=== PATIENT | female | born 1950 | race Hispanic/Latino ===

== ENCOUNTER 2017-02-22 09:42 | Day surgery (SDC) | payer OTHER ==
[2017-02-18 09:40] VITALS: BMI 26.1
[2017-02-22] MEDS ORDERED: Propofol 10 mg/ml Inj (20 ML) ONE ×2 (12:36→13:05)
[2017-02-22 13:40] VITALS: O2SAT 96
[2017-02-22] MEDS ORDERED: Sodium Chloride 0.9% 1,000 ML IV SCH (13:45)
[2017-02-22 14:51] VITALS: BP 109/71; PULSE 68; RESP 18; TEMP 97.5
== END 2017-02-22 14:54 | disposition home or self-care (01) ==
LOC: ENDO 09:42
PROVIDERS: ATTEND Internal Medicine
DX: D12.5 Benign neoplasm of sigmoid colon (principal); D12.0 Benign neoplasm of cecum; K57.30 Diverticulosis of large intestine without perforation or abscess without bleeding; K55.20 Angiodysplasia of colon without hemorrhage; K59.00 Constipation, unspecified; E03.9 Hypothyroidism, unspecified; K64.8 Other hemorrhoids
CPT/HCPCS: 45380; 88305; J2001; J2704; J7040 ×2

== ENCOUNTER 2018-07-06 06:02 | Day surgery (SDC) | payer MEDICARE ==
[2018-06-07 14:09] VITALS: BMI 26.6
--- NOTE | 2018-07-05 21:15 | HP ---
DATE OF EXAM: 07/05/2018 SEX OF THE PATIENT: Female. AGE OF THE PATIENT: 67. TYPE OF DICTATION: History and Physical. REASON FOR ADMISSION: Right heart catheterization for evaluation of pulmonary hypertension. BRIEF CLINICAL HISTORY: A 67-year-old female with past medical history significant for Raynaud phenomenon, scleroderma, COPD, hypothyroidism, active smoker, referred for right heart catheterization by Dr. Bustillo to assess the severity of the pulmonary hypertension. Because patient had recent echo, which showed the right ventricular systolic pressure of 47 a year ago, patient had an echo that showed the RV systolic pressure was 40. So, patient is referred for right heart catheterization. PAST MEDICAL HISTORY: Past history is significant for scleroderma, COPD, pulmonary hypertension, RV systolic pressure of 47, hypothyroidism, Raynaud phenomenon. SOCIAL HISTORY: Active smoking, [id number] smoking, now cut down to half of a pack of cigarettes. No history of tobacco abuse, alcohol abuse. FAMILY HISTORY: Nothing significant. RECENT CARDIAC WORKUP FOLLOWS: Echo shows normal chamber size, normal systolic function, mild aortic stenosis, mild mitral valve regurgitation, mild tricuspid regurgitation, RV systolic pressure of 47. At stress test, [employer], treadmill time, patient walked on treadmill 6 minutes and 32 seconds. Nuclear scan is essentially negative. Ejection fraction 63%. VQ scan dated 05/09/2018 shows low probability. CURRENT MEDICATIONS: Patient is taking levothyroxine 75 daily; Trelegy Ellipta inhaler, combination of steroid, vilanterol, and umeclidinium, that is Trelegy Ellipta 100/62.5/25 one puff b.i.d.; Norvasc 2.5 mg started for Raynaud phenomenon. REVIEW OF SYSTEMS: As per HPI. PHYSICAL EXAMINATION: As follows: VITAL SIGNS: Height of the patient is 5 feet 9 inches, weight of the patient 180 pounds, body mass index 26.6 kg/m2. Rest of the vitals: Blood pressure 120/70, heart rate 60. HEENT: PERRLA intact. NECK: Supple. No carotid bruit or thyromegaly. CHEST: Clear to auscultation. HEART: S1 and S2 regular. ABDOMEN: Soft. EXTREMITIES: Clubbing, cyanosis negative. LABORATORY DATA: Blood workup, pending. IMPRESSION: A 67-year-old female, active tobacco abuse, with past medical history of Raynaud phenomenon, scleroderma, chronic obstructive pulmonary disease, hypothyroidism, pulmonary hypertension, admitted for right heart catheterization for evaluation for pulmonary hypertension and management for new medication. RECOMMENDATION: Continue Norvasc 2.5 mg for Raynaud phenomenon. Further recommendation after cardiac catheterization. We will follow with you. Thank you, Dr. Bustillo/Dr. Mascorro, for providing us the opportunity in taking care of Rocio Walt. Maricruz Schmidt MD
[2018-07-06 06:54] LABS: BASO # 0.1 K/mm3 (0.0-2.0); BASO % 1.7 % (0.0-3.0); EOS # 0.1 (0.0-0.7); EOS % 1.7 % (1.5-5.0); GRAN # 3.88 (1.4-6.5); GRAN % 65.8 % (50.0-68.0); HEMOGLOBIN 14.8 g/dL (12.0-16.0); LYMPH # 1.5 (1.2-3.4); LYMPH % 25.4 % (22.0-35.0); MEAN CELL VOLUME 94.5 fl (80.0-105.0); MEAN CORPUSCULAR HEMOGLOBIN 31.3 pg (25.0-35.0); MEAN CORPUSCULAR HGB CONC 33.1 g/dl (31.0-37.0); MEAN PLATELET VOLUME 10.1 fl (7.0-11.0); MONO # 0.3 (0.1-0.6); MONO % 5.4 % (1.0-6.0); RBC 4.73 10^6/uL (3.5-6.1); RED CELL DISTRIBUTION WIDTH 13.7 % (11.5-14.5); WHITE BLOOD COUNT 5.9 10^3/uL (4.5-11.0)
[2018-07-06 06:56] LABS: INR 0.95; PARTIAL THROMBOPLASTIN TIME 32.8 Seconds (25.1-36.5); PROTHROMBIN TIME 10.9 SECONDS (9.4-12.5)
[2018-07-06] MEDS ORDERED: Lidocaine 2% Inj (20ml) ONE (06:58)
[2018-07-06 06:59] LABS: BLOOD UREA NITROGEN 16 mg/dL (7-21); CALCIUM 9.3 mg/dL (8.4-10.5); GFR NON-AFRICAN AMERICAN > 60; HDL CHOLESTEROL 57 mg/dL (29-60)
[2018-07-06 07:09] LABS: LDL CHOLESTEROL 145 mg/dL (0-129)
[2018-07-06] MEDS ORDERED: Midazolam 2 MG/2 ML VIAL ONE (07:42)
[2018-07-06] MEDS ORDERED: Sodium Chloride 0.9% 1,000 ML IV SCH (08:30)
[2018-07-06 08:51] VITALS: TEMP 98
--- NOTE | 2018-07-06 09:54 | CPOSTOP ---
CARDIOVASCULAR LAB POSTPROCEDURE NOTE DATE: 07/06/2018 PHYSICIAN: Dr. Cynthia Schmidt. DOCUMENTATION ENGINEER: TRICE Weinstein. TYPE OF ANESTHESIA: Moderate conscious sedation, total 2 mg of Versed and 100 of fentanyl given periodically. Started 1 mg of Versed and 50 of fentanyl. PRE-PROCEDURE DIAGNOSIS: Pulmonary hypertension. PROCEDURE PERFORMED: Right heart catheterization with cardiac output by thermodilution technique. FINDINGS: Mild pulmonary hypertension. FINAL DIAGNOSES: Mild pulmonary hypertension, pulmonary vascular resistance is elevated 4.9 Wood unit. POST PROCEDURE CONDITION: The patient's condition is stable. VASCULAR ACCESS SITE: Right femoral vein. CLOSURE DEVICE: Mynx. TOTAL RADIATION DOSE: 417.72 milligray unit. TOTAL FLUORO TIME: 0.8 minute. Maricruz Schmidt MD
[2018-07-06 11:13] VITALS: O2SAT 96
[2018-07-06 11:14] VITALS: RESP 16
[2018-07-06 12:15] VITALS: BP 101/62; PULSE 64
--- NOTE | 2018-07-06 19:49 | CARDCATH ---
PROCEDURE DATE: 07/06/2018 TYPE OF DICTATION: Cardiovascular lab procedure and right heart catheterization. OPERATING PHYSICIAN: Maricruz Schmidt MD TOOLMAKER HELPER: TRICE Weinstein SCHEDULING: Elective. PROCEDURE PERFORMED: Right heart catheterization. BRIEF CLINICAL HISTORY: This is a 67-year-old female with past medical history significant for Raynaud's phenomenon, scleroderma, COPD, hypothyroidism, active tobacco abuse, referred for right heart catheterization by Dr. Bustillo to assess the severity of the pulmonary hypertension and guide in the management of pulmonary hypertension. The patient had recently also a stress test done. The nuclear scan was negative for ischemia. Ejection fraction reported 63%. The patient had V/Q scan done dated 05/09/2018, there was a low probability. The patient had echocardiography done that shows right ventricular systolic pressure 47, A year ago the RV systolic pressure was 40, so suggested by regional project manager to do the right heart catheterization to guide for the treatment of pulmonary hypertension. INDICATIONS FOR THE PROCEDURE: Pulmonary hypertension, assess the severity of pulmonary hypertension. CASE TECHNIQUE: The patient was brought electively to the laboratory coordinator after signing informed consent. The patient was brought in a fasting state and prepped and draped in sterile standard fashion, put in a supine position in a cath table and then right femoral groin was infiltrated with 2% lidocaine with subcutaneous anesthesia and then with a micropuncture technique, right femoral vein was accessed and then upsize with 7-Uzbek venous sheath Radha and then 7-Uzbek [place] catheter was floated in to right atrium, right ventricle, right pulmonary artery, mean pulmonary artery, and wedge position. Pressures are recorded and also the cardiac output was done with thermodilution technique. After this, the [place] was disconnected, removed and the puncture site was closed with a Mynx closing device. After that manual pressure was held for 10 minute. The patient returned to floor in stable condition. No complication noted at the end of the procedure. Analysis of the right heart catheterization pressure as follows: RA 3 to 4; RV 37/3-4; PA 41/16, mean PA 23-24; pulmonary capillary wedge pressure 4; cardiac output 4.03 L per minute, cardiac index 2.04 by thermodilution technique, and PVR 4.9 Morris unit. CONCLUSION: Primary pulmonary hypertension. Mohammad MD Brayan cc: Alfa Bustillo MD, Lucio Mascorro MD [facility] # [id number] [facility] SYSTEMMike
== END 2018-07-06 12:45 | disposition home or self-care (01) ==
LOC: CATH 06:02
PROVIDERS: ATTEND Internal Medicine Cardiovascular Disease
DX: I27.0 Primary pulmonary hypertension (principal); M34.9 Systemic sclerosis, unspecified; J44.9 Chronic obstructive pulmonary disease, unspecified; I73.00 Raynaud's syndrome without gangrene; F17.210 Nicotine dependence, cigarettes, uncomplicated; E03.9 Hypothyroidism, unspecified
CPT/HCPCS: 36415; 80048; 80061; 85025; 85610; 85730; 86850; 86900; 93451; 99152; C1760; C1894; J1644; J2250; J3010; J7030

== ENCOUNTER 2018-08-02 09:44 | Outpatient (CLI) | payer MEDICARE | END 2018-08-02 09:45 | disposition home or self-care (01) | LOC: RAD 09:44 ==

== ENCOUNTER 2018-08-22 08:04 | Outpatient (CLI) | payer MEDICARE | END 2018-08-22 08:05 | disposition home or self-care (01) | LOC: LAB 08:04 ==

== ENCOUNTER 2018-10-03 10:34 | Outpatient (CLI) | payer MEDICARE | END 2018-10-03 10:35 | disposition home or self-care (01) | LOC: LAB 10:34 ==